=== PATIENT | female | born 1975 | race African-American/Black ===

== ENCOUNTER → 2016-04-21 | Outpatient (CLI) | payer OTHER ==
[~2016-04-21] MED LIST: NO HOME MEDICATIONS; PRENATAL1 TA2 PO
== END ==
LOC: MC.RAD 13:43
DX: D24.2 Benign neoplasm of left breast (principal)

== ENCOUNTER 2017-01-21 00:42 | Outpatient (CLI) | payer SELFPAY ==
[~2017-01-21] VITALS: Ht 157.5 cm; Wt 86.4 kg
[2017-01-21 01:10] VITALS: BP 119/58; PULSE 91; TEMP 98.8
[2017-01-21 01:15] VITALS: BP 119/58; PULSE 91; TEMP 98.8
[2017-01-21] MEDS ORDERED: CALCIUM 600MG+D1 TAB PO (01:22)
[2017-01-21] MEDS ORDERED: B COMPLEX #11 TAB (01:22)
== END 2017-01-21 02:10 | disposition home or self-care (01) ==
LOC: LDRO 00:42
DX: O62.9 Abnormality of forces of labor, unspecified (principal); Z3A.34 34 weeks gestation of pregnancy

== ENCOUNTER 2017-02-15 02:48 | Inpatient (IN) | payer MEDICAID ==
[2017-02-15] VITALS (22 sets, daily range): BP systolic 104–140; BP diastolic 44–96; PULSE 58–86; TEMP 97.6–98.5
[~2017-02-15] VITALS: Ht 158.1 cm; Wt 87.7 kg
[~2017-02-15 02:48] MED LIST changes: +B COMPLEX #11 TAB; +CALCIUM 600MG+D1 TAB PO
[2017-02-15 04:49] LABS: BASO # 0.1 (0.0-0.2); BASO % 1.2 % (0.0-2.0); EOS # 0.2 (0.0-0.7); GRAN # 6.7 (1.4-6.5); GRAN % 65.6 % (42.2-75.2); HEMATOCRIT 37.6 % (37.0-47.0); HEMOGLOBIN 12.3 g/dl (12.5-16.0); LYMPH % 19.4 % (20.0-51.0); MEAN CELL VOLUME 85 fl (80.0-100.0); MEAN CORPUSCULAR HEMOGLOBIN 28 pg (27.0-31.0); MEAN CORPUSCULAR HGB CONC 33 g/dl (33.0-37.0); MEAN PLATELET VOLUME 9.5 fl (7.4-10.4); MONO # 1.1 (0.1-0.6); MONO % 10.8 % (1.7-9.3); PLATELET COUNT 244 K/mm3 (130-400); RED BLOOD COUNT 4.45 M/mm3 (4.10-5.30); WHITE BLOOD COUNT 10.1 K/mm3 (4.8-10.8)
[2017-02-16 06:18] LABS: HEMATOCRIT 37.6 % (37.0-47.0); HEMOGLOBIN 12.5 g/dl (12.5-16.0)
[2017-02-16 08:30] VITALS: BP 120/64; PULSE 90; TEMP 97.3
[2017-02-16] MEDS ORDERED: IBU600 MG PO (09:18)
[2017-02-16] MEDS ORDERED: PERCOCET 325 MG1 TA2 PO (09:18)
[2017-02-16 16:00] VITALS: BP 132/77; PULSE 104; TEMP 98.9
[2017-02-16 19:55] VITALS: BP 110/64; PULSE 91; TEMP 98
[2017-02-17 07:25] VITALS: BP 138/67; PULSE 85; TEMP 98
[2017-02-17 16:05] VITALS: BP 109/64; PULSE 78; TEMP 98.6
[2017-02-17 19:50] VITALS: BP 120/65; PULSE 86; TEMP 97.7
[2017-02-18 07:30] VITALS: BP 107/70; PULSE 84; TEMP 99.1
[2017-02-18] MEDS ORDERED: CEPHALEXIN500 M1 PO (08:47)
[2017-02-18 09:00] VITALS: BP 123/69; PULSE 56; TEMP 99.1
[2017-02-18 10:27] LABS: MEAN CELL VOLUME 85 fl (80.0-100.0); MEAN CORPUSCULAR HEMOGLOBIN 28 pg (27.0-31.0); MEAN CORPUSCULAR HGB CONC 32 g/dl (33.0-37.0); MEAN PLATELET VOLUME 9.6 fl (7.4-10.4); PLATELET COUNT 300 K/mm3 (130-400); RED BLOOD COUNT 4.35 M/mm3 (4.10-5.30)
[2017-02-18 10:34] LABS: ALBUMIN 3.2 gm/dL (3.5-5.0); CALCIUM 9.4 mg/dL (8.4-10.2); CREATININE, serum 0.8 mg/dL (0.52-1.25); TOTAL PROTEIN 6.3 gm/dL (6.4-8.2)
[2017-02-18 11:44] VITALS: TEMP 98.5
[2017-02-18 13:30] VITALS: BP 131/72; PULSE 82; TEMP 97.5
[2017-02-18 16:15] VITALS: BP 123/86; PULSE 96; TEMP 98.6
== END 2017-02-18 18:00 | disposition home or self-care (01) | DRG 765 ==
LOC: LDRO 02:48 → LDR 03:45 → OB 03:45
PROVIDERS: Obstetrics & Gynecology
PROC: 10D00Z1 Extraction of Products of Conception, Low, Open Approach (ICD-10-PCS; principal; 2017-02-15)
DX: O34.211 Maternal care for low transverse scar from previous cesarean delivery (principal); L03.311 Cellulitis of abdominal wall; O86.0 Infection of obstetric surgical wound; N85.8 Other specified noninflammatory disorders of uterus; O69.81X0 Labor and delivery complicated by cord around neck, without compression, not applicable or unspecified; Z3A.38 38 weeks gestation of pregnancy; Z37.0 Single live birth
CPT/HCPCS: J0690; J1885; J2270; J2370; J2405; J2590; J7120

== ENCOUNTER → 2020-09-05 | Outpatient (CLI) | payer MEDICAID ==
[~2020-09-05] MED LIST changes: +CEPHALEXIN500 M1 PO; +IBU600 MG PO; +PERCOCET 325 MG1 TA2 PO
== END ==
LOC: COL.RAD 12:21
DX: K76.0 Fatty (change of) liver, not elsewhere classified (principal)

== ENCOUNTER → 2021-08-30 | Outpatient (CLI) | payer MEDICAID | LOC: COL.RAD 08-26 07:00 | DX: R10.11 Right upper quadrant pain (principal) | CPT/HCPCS: A9537 ==